=== PATIENT | female | born 1990 | race African-American/Black ===

== ENCOUNTER → 2017-03-03 | Outpatient (CLI) | payer OTHER ==
--- NOTE | ~2017-03-03 | US128 ---
[id number] [facility] [address] [place], [place] [address] [id number] O MR#: [id number] Acc #: [id number] NAME: TRE NAQVI : 1990 SEX: F STUDY DATE/TIME: 03/03/2017 13:50 UNIT: [facility]US ROOM: STUDY DESCRIPTION: Thyroid Attending Physician: Ariane Abarca A.P.R.N. Referring Physician: Ariane Abarca A.P.R.N. Ordering Physician: Ariane Abarca A.P.R.N. Primary Care Physician: Ariane Abarca A.P.R.N. MEDICAL IMAGING REPORT This report is preliminary unless electronic signature is present EXAM Thyroid ultrasound, 03/03/17. HISTORY Tightness in throat for 2 weeks. Enlarged thyroid on physical examination, thyroid goiter, nontoxic on physical exam 02/24/17. FINDINGS The right thyroid lobe measured 2.2 cm x 1.9 cm x 4.5 cm while the left lobe measured 1.8 cm x 1.8 cm x 4.3 cm. The isthmus measured 6 mm in the AP direction. There is a 4 mm nodule in the upper pole of the left thyroid lobe. The thyroid is otherwise homogeneous in echotexture. There are no masses extrinsic to the thyroid. Normal blood flow is seen throughout both thyroid lobes. IMPRESSION Solitary 4 mm nodule upper pole left thyroid lobe. Dictated by... Dean Linares M.D. THIS IS AN ELECTRONICALLY VERIFIED REPORT Dean Linares M.D. at 03/04/2017 2:05 PM MARGARETH/tessa TD: 03/03/2017 20:01 JOB #: [id number] MEDICAL IMAGING REPORT Page 1 of 1 COPY
== END | disposition home or self-care (01) ==
LOC: CGUS 13:24
DX: E04.9 Nontoxic goiter, unspecified (principal); E04.1 Nontoxic single thyroid nodule
CPT/HCPCS: 76536